=== PATIENT | male | born 1980 | race Caucasian/White ===

== ENCOUNTER 2018-02-16 14:48 | Emergency (ER) | payer MEDICARE, MEDICAID, SELFPAY ==
[2018-02-16 14:54] VITALS: BP 141/72; PULSE 83; RESP 16; TEMP 36.5; O2SAT 99
--- NOTE | 2018-02-16 15:18 | W.ED.GENAD ---
Discharge Plan Disposition Patient Disposition: HOME Condition: Stable Discharge Details Chief Complaint: GenMedical Clinical Impression: Myalgia Primary Care Provider: Sugey Singh ED Provider: Brandon Ko Home Meds and New Rx's Prescriptions: No Action multivitamin [Multiple Vitamins] 1 EACH tablet 1 tab PO DAILY RF: 0 Invega Sustenna 39 mg/0.25 mL Syringe IM QMONTH RF: 0 Discharge Instructions Instructions: Musculoskeletal Pain (ED) Additional Instructions: you have an appointment on 02/23 at 1pm with your primary care provider return to the emergency department if you develop high fevers, localized pain to the chest or abdomen or have difficulty breathing you can take 1000mg tylenol and 600mg ibuprofen every 6 hours for pain as needed Medical Decision Making 37 yo male with hx of schizophrenia comes in with complaints of years of body aches and general weakness. Denies fevers, chills, chest pain, abdominal pain and has no tenderness in the abdomen on exam. Has no rashes and has clear lungs. Has no focal findings on exam to suggest entities such as acs, pe, dissection, acute abdominal pathology or sepsis. Do not feel labs or imaging indicated at this time. He could be coming down with viral illness causing his myalgias though has had them for years. Does have point tenderness in multiple spots so could also be fibromyalgia. Will have him f/u with pcp and return precautions given Differential Diagnosis schizophrenia, viral illness, myalgias HPI General Mode of arrival: ambulatory. Date/Time Provider Initiated Documentation: 02/16/18 14:59. Limitations to Documentation: no limitations. Information obtained by: patient. History of Present Illness 37 year old M presents to the emergency department with the chief complaint of body aches, described as moderate, Quality is described as aching, Patient started experiencing this year(s) (3) and it has been constant. No relieving factors improve symptom(s), No exacerbating factors reported . Patient did receive the following treatments prior to arrival, none Related Data Home Medications Medication Instructions Recorded Confirmed multivitamin [Multiple Vitamins] 1 tab PO DAILY 10/16/14 02/16/18 paliperidone palmitate [Invega mg IM QMONTH 02/16/18 Sustenna] Allergies Allergy/AdvReac Type Severity Reaction Status Date / Time No Known Allergies Allergy Unverified 02/16/18 14:59 General Stated Complaint: GenMedical LARY: 3 Review of Systems Review of Systems All systems reviewed & are unremarkable except as noted in HPI and below Constitutional Denies chills and Denies fever(s) ENT Denies change in voice Cardiovascular Denies chest pain and Denies dyspnea Respiratory Denies dyspnea Gastrointestinal Denies abdominal pain, Denies nausea and Denies vomiting Genitourinary Denies dysuria Musculoskeletal Denies joint swelling Integumentary/Breasts Denies rash Psychiatric Denies depression [facility] Social History Smoking/Tobacco Use Status: Current every day Exam Const General: no acute distress Orientation: alert HENMT Head: normal to inspection Ears: external ears normal General nose exam: external nose normal Mouth: moist mucous membranes Eyes General: appearance normal, both eyes and all related structures Neck Neck: normal visual inspection Resp Effort & Inspection: normal respiratory effort and able to speak in complete sentences Cardio Rate: regular rate Skin General skin exam: no rashes or lesions noted Neuro General: alert and oriented x3 Extrem General: normal to inspection Psych Thought Content: no hallucinations and suicidality Course Vital Signs Temperature 36.5 C 02/16/18 14:54 Pulse 83 02/16/18 14:54 Respiratory Rate 16 02/16/18 14:54 Blood Pressure 141/72 H 02/16/18 14:54 Pulse Oximetry 99 02/16/18 14:54 Temperature 36.5 C 02/16/18 14:54 Temperature Source Temporal Artery Scan 02/16/18 14:54 Pulse 83 02/16/18 14:54 Respiratory Rate 16 02/16/18 14:54 Respiratory Effort Non-Labored 02/16/18 14:58 Blood Pressure 141/72 H 02/16/18 14:54 Blood Pressure Position Sitting 02/16/18 14:54 Pulse Oximetry 99 02/16/18 14:54 Oxygen Delivery Method Room Air 02/16/18 14:54 Oxygen Flow Rate 0 02/16/18 14:54 Pain Level 8 02/16/18 14:54
--- NOTE | 2018-02-16 15:23 | ED.GENADUL_ITS ---
Discharge Plan Disposition Patient Disposition: HOME Condition: Stable Discharge Details Chief Complaint: GenMedical Clinical Impression: Myalgia Primary Care Provider: Sugey Singh ED Provider: Brandon Ko Home Meds and New Rx's Prescriptions: No Action multivitamin [Multiple Vitamins] 1 EACH tablet 1 tab PO DAILY RF: 0 Invega Sustenna 39 mg/0.25 mL Syringe IM QMONTH RF: 0 Discharge Instructions Instructions: Musculoskeletal Pain (ED) Additional Instructions: you have an appointment on 02/23 at 1pm with your primary care provider return to the emergency department if you develop high fevers, localized pain to the chest or abdomen or have difficulty breathing you can take 1000mg tylenol and 600mg ibuprofen every 6 hours for pain as needed Medical Decision Making 37 yo male with hx of schizophrenia comes in with complaints of years of body aches and general weakness. Denies fevers, chills, chest pain, abdominal pain and has no tenderness in the abdomen on exam. Has no rashes and has clear lungs. Has no focal findings on exam to suggest entities such as acs, pe, dissection, acute abdominal pathology or sepsis. Do not feel labs or imaging indicated at this time. He could be coming down with viral illness causing his myalgias though has had them for years. Does have point tenderness in multiple spots so could also be fibromyalgia. Will have him f/u with pcp and return precautions given Differential Diagnosis schizophrenia, viral illness, myalgias HPI General Mode of arrival: ambulatory . Date/Time Provider Initiated Documentation: 02/16/18 14:59 . Limitations to Documentation: no limitations . Information obtained by: patient . History of Present Illness 37 year old M presents to the emergency department with the chief complaint of body aches, described as moderate, Quality is described as aching, Patient started experiencing this year(s) (3) and it has been constant. No relieving factors improve symptom(s), No exacerbating factors reported . Patient did receive the following treatments prior to arrival, none Related Data Home Medications Medication Instructions Recorded Confirmed multivitamin [Multiple Vitamins] 1 tab PO DAILY 10/16/14 02/16/18 paliperidone palmitate [Invega mg IM QMONTH 02/16/18 Sustenna] Allergies Allergy/AdvReac Type Severity Reaction Status Date / Time No Known Allergies Allergy Unverified 02/16/18 14:59 General Stated Complaint: GenMedical LARY: 3 Review of Systems Review of Systems All systems reviewed & are unremarkable except as noted in HPI and below Constitutional Denies chills and Denies fever(s) ENT Denies change in voice Cardiovascular Denies chest pain and Denies dyspnea Respiratory Denies dyspnea Gastrointestinal Denies abdominal pain, Denies nausea and Denies vomiting Genitourinary Denies dysuria Musculoskeletal Denies joint swelling Integumentary/Breasts Denies rash Psychiatric Denies depression [facility] Social History Smoking/Tobacco Use Status: Current every day Exam Const General: no acute distress Orientation: alert HENMT Head: normal to inspection Ears: external ears normal General nose exam: external nose normal Mouth: moist mucous membranes Eyes General: appearance normal, both eyes and all related structures Neck Neck: normal visual inspection Resp Effort & Inspection: normal respiratory effort and able to speak in complete sentences Cardio Rate: regular rate Skin General skin exam: no rashes or lesions noted Neuro General: alert and oriented x3 Extrem General: normal to inspection Psych Thought Content: no hallucinations and suicidality Course Vital Signs Temperature 36.5 C 02/16/18 14:54 Pulse 83 02/16/18 14:54 Respiratory Rate 16 02/16/18 14:54 Blood Pressure 141/72 H 02/16/18 14:54 Pulse Oximetry 99 02/16/18 14:54 Temperature 36.5 C 02/16/18 14:54 Temperature Source Temporal Artery Scan 02/16/18 14:54 Pulse 83 02/16/18 14:54 Respiratory Rate 16 02/16/18 14:54 Respiratory Effort Non-Labored 02/16/18 14:58 Blood Pressure 141/72 H 02/16/18 14:54 Blood Pressure Position Sitting 02/16/18 14:54 Pulse Oximetry 99 02/16/18 14:54 Oxygen Delivery Method Room Air 02/16/18 14:54 Oxygen Flow Rate 0 02/16/18 14:54 Pain Level 8 02/16/18 14:54
== END 2018-02-16 15:27 | disposition home or self-care (01) ==
LOC: ER 15:41
PROVIDERS: Emergency Provider Emergency Medicine; PCP Nurse Practitioner Family
DX: M79.10 Myalgia, unspecified site (principal); M62.81 Muscle weakness (generalized)
CPT/HCPCS: 99282

== ENCOUNTER 2018-02-23 15:37 | Outpatient (REF) | payer MEDICARE, MEDICAID, SELFPAY ==
[2018-02-23 19:13] LABS: HCT 46.7 % (40.0-50.0); HGB 15.9 g/dL (13.5-17.5); Mean Corpuscular Hemoglobin 31.2 pg (27.0-33.0); Mean Corpuscular Volume 91.7 fL (80-95); Mean Platelet Volume 11.4 fL (8.0-11.0); Platelet Count 250 x1000/uL (130-400); RBC 5.09 m/cumm (4.50-6.00); RBC Distribution Width 13.2 % (11.8-14.1); White Blood Cell Count 9.57 k/cumm (4.4-10.8)
[2018-02-23 19:27] LABS: ALT 16 U/L (12-78); AST 14 U/L (15-37); Albumin 4.6 g/dL (3.4-5.0); Alkaline Phosphatase 77 U/L (46-116); BUN 6 mg/dL (7-18); Bilirubin, Total 0.3 mg/dL (0.2-1.0); CREATININE 0.83 mg/dL (0.70-1.30); Calcium 9.7 mg/dL (8.5-10.1); Chloride 103 mmol/L (98-107); Glucose 86 mg/dL (70-100); Potassium 4.3 mmol/L (3.5-5.1); Sodium 141 mmol/L (136-145); TSH (W/Ref FT4) 1.34 uIU/mL (0.358-3.74); Total Protein 7.5 g/dL (6.4-8.2)
[2018-02-25 12:03] LABS: HIV-1/2 Ag & Ab Screen Negative (NEGAT)
== END 2018-02-23 15:57 ==
LOC: NCHCN 15:37
PROVIDERS: PCP Nurse Practitioner Family; Visit Provider Nurse Practitioner Family
DX: R63.4 Abnormal weight loss (principal); R53.1 Weakness; Z11.4 Encounter for screening for human immunodeficiency virus [HIV]
CPT/HCPCS: 80053; 85027; 87389; 84443